=== PATIENT | male | born 1995 | race Caucasian/White ===

== ENCOUNTER 2021-11-10 15:33 | Emergency (ER) | payer SELFPAY ==
--- NOTE | 2021-11-10 18:12 | EDPHYS ---
Physician Documentation [facility] Name: Kevin Bashir Age: 25 yrs Sex: Male : 1995 Arrival Date: 11/10/2021 Time: 15:38 Bed DIS3 Private MD: ED Physician Refugio Baltazar HPI: 11/10 18:11 This 25 yrs old Male presents to ER via Ambulatory with complaints of Covid Test. [facility] 18:11 The patient or guardian reports cough. Onset: The symptoms/episode began/occurred jm gradually, 1 week(s) ago. Modifying factors: The symptoms are alleviated by nothing. the symptoms are aggravated by nothing. Associated signs and symptoms: Pertinent positives: fever, sore throat. It is unknown whether or not the patient has had similar symptoms in the past. Historical: - Allergies: 16:09 No Known Allergies; iw ROS: 18:11 Constitutional: Positive for body aches, chills, fatigue, fever. [facility] 18:11 ENT: Positive for sinus congestion, sore throat. 18:11 Respiratory: Positive for cough. 18:11 All other systems are negative. Exam: 18:11 Constitutional: This is a well developed, well nourished patient who is awake, alert, jmm and in no acute distress. Head/Face: atraumatic. Eyes: EOMI, no conjunctival erythema appreciated ENT: Moist Mucus Membranes Neck: Trachea midline, Supple Chest/axilla: Normal chest wall appearance and motion. Cardiovascular: Regular rate and rhythm. No edema appreciated Respiratory: Normal respirations, no respiratory distress appreciated Abdomen/GI: Non distended, soft Back: Normal ROM Skin: General appearance color normal MS/ Extremity: Moves all extremities, no obvious deformities appreciated, no edema noted to the lower extremities Neuro: Awake and alert Psych: Behavior is normal, Mood is normal, Patient is cooperative and pleasant Vital Signs: 16:09 BP 127 / 92; Pulse 82; Resp 16; Temp 98.4; Pulse Ox 99% on R/A; iw MDM: 16:11 Patient medically screened. [facility] 18:11 Data reviewed: vital signs, nurses notes. Counseling: I had a detailed discussion with [facility] the patient and/or guardian regarding: the historical points, exam findings, and any diagnostic results supporting the discharge/admit diagnosis, lab results, the need for outpatient follow up, to return to the emergency department if symptoms worsen or persist or if there are any questions or concerns that arise at home. 11/10 16:10 Order name: SARS-COV-2 RT PCR (Document "Date of Onset" if Symptomatic); Complete Time: [facility] 18:01 11/10 16:10 Order name: Influenza Screen (a \\T\\ B); Complete Time: 17:48 [facility] Administered Medications: No medications were administered Disposition: 19:03 Co-signature as Attending Physician, Refugio Baltazar MD. rn Disposition Summary: 11/10/21 18:12 Discharge Ordered Location: Home [facility] Condition: Stable [facility] Diagnosis - Coronavirus infection, unspecified [facility] Followup: [facility] - With: Private Physician - When: 2 - 3 days - Reason: Recheck today's complaints, Continuance of care, Re-evaluation by your physician Discharge Instructions: - Discharge Summary Sheet [facility] - COVID-19 [facility] Forms: - Medication Reconciliation Form [facility] - Thank You Letter [facility] - Antibiotic Education [facility] - Prescription Opioid Use [facility] Prescriptions: - Paxlovid Convenience Pack - take 1 application by ORAL route 2 times per day for 5 days; 1 packet; Refills: [facility] 0, Product Selection Permitted Signatures: Dispatcher [employer] Alexandr Sherman PA PA jmm Williams, Irene, RN RN Refugio More MD MD rn
--- NOTE | 2021-11-10 18:12 | ER ---
Nurse's Notes [facility] Name: Kevin Bashir Age: 25 yrs Sex: Male : 1995 Arrival Date: 11/10/2021 Time: 15:38 Bed DIS3 Private MD: Diagnosis: Coronavirus infection, unspecified Presentation: 11/10 16:08 Chief complaint: Patient states: congestion and cough, was exposed to COVID, vomited iw once. Coronavirus screen: Client presents with at least one sign or symptom that may indicate coronavirus-19. Ebola Screen: Patient negative for fever greater than or equal to 101.5 degrees Fahrenheit, and additional compatible Ebola Virus Disease symptoms Patient denies exposure to infectious person. Patient denies travel to an Ebola-affected area in the 21 days before illness onset. No symptoms or risks identified at this time. Onset of symptoms was November 08, 2021. 16:08 Method Of Arrival: Ambulatory iw 16:08 Acuity: ANASTACIO 4 iw 18:34 Initial Sepsis Screen: Does the patient meet any 2 criteria? No. Patient's initial iw sepsis screen is negative. Does the patient have a suspected source of infection? No. Patient's initial sepsis screen is negative. Risk Assessment: Do you want to hurt yourself or someone else? Patient reports no desire to harm self or others. Historical: - Allergies: 16:09 No Known Allergies; iw Screenin:23 Abuse screen: Denies threats or abuse. Denies injuries from another. Nutritional iw screening: No deficits noted. Tuberculosis screening: No symptoms or risk factors identified. Fall Risk None identified. Assessment: 16:23 General: Appears in no apparent distress. Behavior is calm, cooperative. Pain: Denies iw pain. Neuro: Level of Consciousness is awake, alert, obeys commands, Oriented to person, place, time, situation. Respiratory: Reports cough that is. EENT: Reports nasal congestion nasal discharge. Derm: Skin is intact, is healthy with good turgor. Musculoskeletal: Range of motion: intact in all extremities. Vital Signs: 16:09 BP 127 / 92; Pulse 82; Resp 16; Temp 98.4; Pulse Ox 99% on R/A; iw ED Course: 15:38 Patient arrived in ED. mr 15:42 Alexandr Portillo PA is PHCP. jmm 15:42 Baltazar, Refugio, MD is Attending Physician. [facility] 16:08 Rosalinda Mota, RN is Primary Nurse. iw 16:09 Triage completed. iw 16:09 Arm band placed on. iw 16:23 No provider procedures requiring assistance completed. Patient did not have IV access iw during this emergency room visit. Administered Medications: No medications were administered Outcome: 18:12 Discharge ordered by MD. [facility] 18:33 Discharged to home ambulatory. iw 18:33 Condition: good 18:33 Discharge instructions given to patient, Instructed on discharge instructions, follow up and referral plans. medication usage, Demonstrated understanding of instructions, follow-up care, medications, Prescriptions given X 1. 18:34 Patient left the ED. iw Signatures: Alexandr Portillo PA PA jmm Rivera, Mary mr Rosalinda Mota, RN RN iw Corrections: (The following items were deleted from the chart) 18:34 16:09 Pulse 82bpm; Resp 16bpm; Pulse Ox 99% RA; Temp 98.4F; iw iw
[2021-11-10 18:42] VITALS: BP 127/92; TEMP 98.4; O2SAT 99
== END 2021-11-10 18:34 | disposition home or self-care (01) ==
LOC: ER 15:33
DX: U07.1 COVID-19 (principal)
CPT/HCPCS: 87804; 99282; U0003